=== PATIENT | male | born 1940 | race Caucasian/White ===

== ENCOUNTER 2016-08-08 03:32 | Emergency (ER) | payer MEDICARE ==
[~2016-08-08 03:32] MED LIST: ASPIRIN81 MG; LASIX; LISINOPRIL; TOPROL XL
[2016-12-23] MEDS ORDERED: AMBIEN10 MG (16:12)
[2016-12-23] MEDS ORDERED: BUMEX (16:12)
== END 2016-08-08 03:42 | disposition home or self-care (01) ==
LOC: SED 03:32
DX: S39.012A Strain of muscle, fascia and tendon of lower back, initial encounter (principal); I11.0 Hypertensive heart disease with heart failure; I50.9 Heart failure, unspecified; Z86.73 Personal history of transient ischemic attack (TIA), and cerebral infarction without residual deficits; M10.9 Gout, unspecified; X50.1XXA Overexertion from prolonged static or awkward postures, initial encounter
CPT/HCPCS: 99283

== ENCOUNTER 2016-10-09 15:29 | Emergency (ER) | payer MEDICARE ==
--- NOTE | ~2016-10-09 | CR20 ---
[facility]. [facility] A Service of [facility] & [facility] RADIOLOGY TEXT RESULTS PATIENT: MELANIE DAVIS LOCATION: SED : 42 UNIT #: [id number] AGE: [address]: JUAN OBRIEN SEX: M ORDER DR: [id number] [place] [id number] E MR#: [id number] Acc #: [id number] NAME: MELANIE DAVIS : 1940 SEX: M STUDY DATE/TIME: 10/09/2016 16:08 UNIT: SED ROOM: STUDY DESCRIPTION: CR Ankle Min 3 Views Lt Attending Physician: Juan Obrien Ordering Physician: Juan Obrien Primary Care Physician: No Primary Care Physician MEDICAL IMAGING REPORT This report is preliminary unless electronic signature is present. EXAM Left ankle series 10/09/2016 HISTORY Trauma, twisted ankle 3 days ago. Medial side pain. FINDINGS AP lateral and oblique radiographs of the left ankle show no traumatic fracture or malalignment. Mild soft tissue swelling adjacent to the medial malleolus and along the anterior aspect of the ankle. Correlate with exam. Small plantar calcaneal spur. Vascular calcifications. No soft tissue defect. Dictated by... Kehinde Ospina M.D. THIS IS AN ELECTRONICALLY VERIFIED REPORT Kehinde Ospina M.D. at 10/10/2016 10:48 PM GLENYS/polo TD: 10/10/2016 03:33 JOB #: [id number] MEDICAL IMAGING REPORT Page 1 of 1
[2016-12-23] MEDS ORDERED: AMBIEN10 MG (16:12)
[2016-12-23] MEDS ORDERED: BUMEX (16:12)
== END 2016-10-09 18:10 | disposition home or self-care (01) ==
LOC: SED 15:29
DX: S93.402A Sprain of unspecified ligament of left ankle, initial encounter (principal); I25.2 Old myocardial infarction; I50.9 Heart failure, unspecified; X58.XXXA Exposure to other specified factors, initial encounter; Y92.9 Unspecified place or not applicable
CPT/HCPCS: 29540; 73610; 99283